=== PATIENT | female | born 1975 | race Two or more races ===

== ENCOUNTER 2023-11-25 12:18 | Day surgery (SDC) | payer MEDICAID ==
[~2023-11-25] VITALS: Ht 170.2 cm; Wt 77.0 kg
[~2023-11-25 12:18] MED LIST: CYCL-1 PO; GABA300T28 PO; HYDR-3972 PO; OMEP20CA16
[2023-11-25] MEDS ORDERED: simethicone 40mg/0.6ml oral drops 30ml ONE (12:54)
[2023-11-25] MEDS ORDERED: propofol inj 20 ML IV ONE (12:55)
[2023-11-25] MEDS ORDERED: LIDOcaine 2% (20mg/ml) 5ml vial ONE (12:55)
[2023-11-25] MEDS ORDERED: fentaNYL/PF 50MCG/1 ML 2ML syringe ONE (12:55)
[2023-11-25] MEDS ORDERED: MIDAZolam 1 MG/ML 5ML VIAL ONE (12:55)
[2023-11-25 12:58] VITALS: BP 128/91; PULSE 74; RESP 14
[2023-11-25 13:15] VITALS: BP 114/82; PULSE 72; RESP 18; O2SAT 94
[2023-11-25 13:25] VITALS: BP 112/78; PULSE 72; RESP 16; O2SAT 95
[2023-11-25 13:35] VITALS: BP 113/77; PULSE 67; RESP 16; O2SAT 96
[2023-11-25 13:45] VITALS: BP 114/80; PULSE 67; RESP 15; O2SAT 98
== END 2023-11-25 14:02 | disposition home or self-care (01) ==
LOC: GI LAB 12:18
PROVIDERS: ATTEND Internal Medicine Gastroenterology
DX: R10.13 Epigastric pain (principal); K21.00 Gastro-esophageal reflux disease with esophagitis, without bleeding; K29.70 Gastritis, unspecified, without bleeding; F17.200 Nicotine dependence, unspecified, uncomplicated; Z88.8 Allergy status to other drugs, medicaments and biological substances
CPT/HCPCS: 43239; J2250; J2704; J3010; J3490; J7030; Z7512; A4620